=== PATIENT | male | born 1995 | race African-American/Black ===

== ENCOUNTER 2023-06-22 01:18 | Emergency (ER) | payer BC, SELFPAY ==
[2023-06-22] MEDS ORDERED: Ketorolac Tromethamine 30 MG (1 mL) VIAL ONE (02:33)
[2023-06-22 05:19] LABS: SARS-CoV-2 NAA Rapid Test Not Detected (NotDetected)
== END 2023-06-22 05:04 | disposition home or self-care (01) ==
LOC: ERS 01:18
DX: J06.9 Acute upper respiratory infection, unspecified (principal)
CPT/HCPCS: 0241U; 87081; 87430; 96372; 99283; J1885